=== PATIENT | female | born 1945 | race African-American/Black ===

== ENCOUNTER 2017-02-01 20:57 | Inpatient (IN) | payer OTHER ==
[~2017-02-01] VITALS: Ht 157.5 cm; Wt 73.0 kg
[2017-02-01] MEDS ORDERED: SODIUM CHLORIDE 0.9% 1000ML BAG (SEPSIS BOLUS) IV ONE (21:15)
[2017-02-01 22:22] LABS: CHLORIDE 105 mEq/L (98-107)
[2017-02-01 22:25] LABS: PARTIAL THROMBOPLASTIN TIME 23.1 sec (24.0-34.0); PROTHROMBIN TIME 10.1 sec
[2017-02-01 22:26] LABS: BASOPHILS % 0.4 % (0.0-2.0); EOSINOPHILS % 0.5 % (0.0-5.0); LYMPHOCYTES % 17.3 % (20.0-50.0); MEAN CORPUSCULAR HEMOGLOBIN 28.3 pg (28.0-32.0); MEAN CORPUSCULAR VOLUME 89.8 fL (81.0-99.0); MEAN PLATELET VOLUME 11.5 fl (7.4-10.4); MONOCYTES % 6.1 % (2.0-8.0); NEUTROPHILS % 75.7 % (40.0-76.0); PLATELET 212 x1000/uL (130-400)
[2017-02-01 22:29] LABS: CARBON DIOXIDE 29 mEq/L (21-32)
[2017-02-01 22:33] LABS: TROPONIN I < 0.02 ng/mL (0.00-0.04)
[2017-02-01] MEDS ORDERED: ASPIRIN 325MG EC TABLET PO ONE (23:45)
[2017-02-01] MEDS ORDERED: DEXTROSE 50% WATER 50ML SYRINGE IV ONE (23:45)
[2017-02-02] VITALS (10 sets, daily range): BP systolic 97–186; BP diastolic 61–89
[2017-02-02 00:23] LABS: CLARITY URINE CLOUDY (CLEAR); COLOR URINE YELLOW (YELLOW); GLUCOSE URINE NEGATIVE (NEGATIVE); KETONES URINE NEGATIVE (NEGATIVE); LEUKOCYTE ESTERASE URINE NEGATIVE (NEGATIVE); NITRITE URINE NEGATIVE (NEGATIVE); OCCULT BLOOD URINE NEGATIVE (NEGATIVE); PROTEIN URINE NEGATIVE (NEGATIVE); SPECIFIC GRAVITY URINE 1.011 (1.005-1.030); UROBILINOGEN URINE 0.2 E.U./dL (0.2-1.0)
[2017-02-02] MEDS ORDERED: LEVOFLOXACIN 750MG PREMIX 150 ML IV ONE (02:30)
[2017-02-02] MEDS ORDERED: DEXTROSE 50% WATER 50ML SYRINGE IV ONE (04:15)
[2017-02-02] MEDS ORDERED: NA PHOS,M-B/NA PHOS,DI-BA ENEMA 118ML PR PRN (08:00)
[2017-02-02] MEDS ORDERED: DIPHENHYDRAMINE 50MG/ML VIAL IV PRN (08:00)
[2017-02-02] MEDS ORDERED: MAGNESIUM/ALUMINUM HYDROXIDE/SIMETHICONE 30ML UDC PO PRN (08:00)
[2017-02-02] MEDS ORDERED: LORAZEPAM 2MG/ML CPJ IV PRN (08:00)
[2017-02-02] MEDS ORDERED: IPRATROPIUM/ALBUTEROL 0.5-3(2.5)MG/3ML NEB INH PRN (08:00)
[2017-02-02] MEDS ORDERED: ONDANSETRON HCL 4MG/2ML VIAL IV PRN (08:00)
[2017-02-02] MEDS ORDERED: HYDROCODONE/ACETAMINOPHEN 5/325MG TABLET PO PRN (08:00)
[2017-02-02] MEDS ORDERED: DOCUSATE SODIUM 100MG CAPSULE PO PRN (08:00)
[2017-02-02] MEDS ORDERED: GUAIFENESIN 200MG/10ML SUGAR FREE UDC PO PRN (08:00)
[2017-02-02] MEDS ORDERED: HYDROMORPHONE HCL/PF 2MG/ML CPJ IV PRN (08:00)
[2017-02-02] MEDS ORDERED: ACETAMINOPHEN 325MG TABLET PO PRN (08:00)
[2017-02-02] MEDS ORDERED: DEXT 5%/0.45% NACL KCL 10MEQ/L 1,000 ML IV SCH (09:00)
[2017-02-02] MEDS: CLONIDINE 0.1MG TABLET PO PRN (12:20)
[2017-02-02] MEDS: ENOXAPARIN 40MG/0.4ML SYR SUBCUT SCH (12:21)
[2017-02-02] MEDS: ASPIRIN 81MG EC TABLET PO SCH (12:21)
[2017-02-02 15:35] LABS: CARBON DIOXIDE 30 mEq/L (21-32); CHLORIDE 109 mEq/L (98-107); TROPONIN I < 0.02 ng/mL (0.00-0.04)
[2017-02-02] MEDS ORDERED: DEXTROSE 50% WATER 50ML SYRINGE IV PRN (21:30)
[2017-02-02] MEDS: INSULIN LISPRO 100 UNITS/ML SUBCUT SCH (22:37)
[2017-02-03] VITALS (8 sets, daily range): BP systolic 0–150; BP diastolic 51–92
[2017-02-03] MEDS: DEXT 5%/0.45% NACL KCL 10MEQ/L 1,000 ML IV SCH ×2 (03:06→16:07)
[2017-02-03 06:00] LABS: BASOPHILS % 0.5 % (0.0-2.0); EOSINOPHILS % 2.2 % (0.0-5.0); HEMOGLOBIN. 8.6 g/dL (12.0-16.0); LYMPHOCYTES % 25.6 % (20.0-50.0); MEAN CORPUSCULAR HEMOGLOBIN 28.4 pg (28.0-32.0); MEAN CORPUSCULAR VOLUME 88.9 fL (81.0-99.0); MEAN PLATELET VOLUME 11.3 fl (7.4-10.4); NEUTROPHILS % 63.7 % (40.0-76.0); PLATELET 211 x1000/uL (130-400); RED BLOOD CELL COUNT 3.04 mill/uL (4.2-5.4)
[2017-02-03 06:45] LABS: CARBON DIOXIDE 30 mEq/L (21-32); CHLORIDE 106 mEq/L (98-107); HDL CHOLESTEROL 37 mg/dL (40-59); LDL CHOLESTEROL 50 mg/dL (5-100); T4 FREE 1.34 ng/dL (0.76-1.46)
[2017-02-03] MEDS ORDERED: POTASSIUM CHLORIDE 20MEQ TABLET SR PO SCH (08:00)
[2017-02-03] MEDS: BLOOD SUGAR DIAGNOSTIC STRIP TEST SCH ×4 (08:13→20:35)
[2017-02-03] MEDS: ASPIRIN 81MG EC TABLET PO SCH (08:16)
[2017-02-03] MEDS: CLONIDINE 0.1MG TABLET PO PRN (08:16)
[2017-02-03] MEDS: INSULIN LISPRO 100 UNITS/ML SUBCUT SCH ×4 (08:17→20:39)
[2017-02-03] MEDS: ENOXAPARIN 40MG/0.4ML SYR SUBCUT SCH (09:00)
[2017-02-03] MEDS ORDERED: ATOR10TA69 PO (14:55)
[2017-02-03] MEDS ORDERED: RISP0.2514 PO (14:55)
[2017-02-03] MEDS ORDERED: AMLO2.5T45 PO (14:55)
[2017-02-03] MEDS ORDERED: INSULIN SQ (14:55)
[2017-02-03] MEDS ORDERED: METF500T4 PO (14:55)
[2017-02-03] MEDS ORDERED: NAPR-679 PO (14:55)
[2017-02-03] MEDS ORDERED: MULT-1146 PO (14:55)
[2017-02-03] MEDS ORDERED: MIRT15TA6 PO (14:55)
[2017-02-03] MEDS ORDERED: GLIP5TAB12 PO (14:55)
== END 2017-02-03 22:15 | disposition short-term general hospital (02) | DRG 637 ==
LOC: ER 21:12 → 5EST 23:58 → ENRESERV 02-02 07:57 → 5EST 02-02 10:05
PROVIDERS: ADMIT Internal Medicine; ATTEND Internal Medicine
DX: E11.649 Type 2 diabetes mellitus with hypoglycemia without coma (principal); G93.41 Metabolic encephalopathy; E46 Unspecified protein-calorie malnutrition; E87.2 Acidosis; I50.9 Heart failure, unspecified; F03.90 Unspecified dementia, unspecified severity, without behavioral disturbance, psychotic disturbance, mood disturbance, and anxiety; I11.0 Hypertensive heart disease with heart failure; D64.9 Anemia, unspecified; E87.6 Hypokalemia; J45.909 Unspecified asthma, uncomplicated; K59.00 Constipation, unspecified; Z68.29 Body mass index [BMI] 29.0-29.9, adult; Z79.899 Other long term (current) drug therapy
CPT/HCPCS: 36415; 70450; 71010; 80048; 80053; 80061; 81001; 82962; 83605; 84439; 84443; 84484; 85025; 85610; 85730; 86850; 86900; 87040; 87086; 93005; 96361; 96365; 96375; 96376; 99285; J1650; J1815; J1956; J2060; J7030